=== PATIENT | male | born 1970 | race Caucasian/White ===

== ENCOUNTER → 2020-06-05 | Outpatient (CLI) | payer OTHER ==
[~2020-06-05] MED LIST: ALBUTEROL2.5 MG/3 M INH; CLARITIN10 MG PO; COMBIVENT0.074 GM/I INH; COMBIVIR TABLE1 EACH INH; DULERA 200 MCG8.8 GM INH; ECOTRIN81 MG PO; LEVOTHYROXINE88 MC1 PO; LISINOPRIL5 MG PO; LOPRESSOR 25 MG25 MG PO; METOPROLOL TART25 MG PO; NEXIUM40 MG PO; NITROGLYCERIN0.4 MG SL; NITROSTAT0.4 MG SL; OMNICEF 300 MG300 MG PO; PREDNISONE20 MG PO; PRINIVIL10 MG PO; PROTONIX40 MG PO; RANOLAZINE ER1000 MG PO; SYNTHROID88 MCG PO
[2020-06-05 14:27] LABS: HEMOGLOBIN 15.3 gm/dl (14.0-17.5); RED BLOOD COUNT 5.24 M/UL (4.20-5.50); WHITE BLOOD COUNT 6.9 K/UL (4.5-11.0)
[2020-06-05 14:47] LABS: BUN/CREATININE RATIO 10 (0-10)
== END ==
LOC: LAB 13:41
PROVIDERS: Internal Medicine Cardiovascular Disease
DX: I20.9 Angina pectoris, unspecified (principal); R53.83 Other fatigue; R94.39 Abnormal result of other cardiovascular function study; R06.02 Shortness of breath; I10 Essential (primary) hypertension; R00.0 Tachycardia, unspecified
CPT/HCPCS: 36415; 71046; 80048; 85025

== ENCOUNTER → 2020-06-09 | Outpatient (CLI) | payer OTHER | LOC: CATH 07:54 | DX: R07.89 Other chest pain (principal); I20.8 Other forms of angina pectoris; R94.39 Abnormal result of other cardiovascular function study; I49.5 Sick sinus syndrome; I10 Essential (primary) hypertension; I34.0 Nonrheumatic mitral (valve) insufficiency; E66.01 Morbid (severe) obesity due to excess calories; J43.9 Emphysema, unspecified; E03.9 Hypothyroidism, unspecified; G47.33 Obstructive sleep apnea (adult) (pediatric); Z68.37 Body mass index [BMI] 37.0-37.9, adult; Z79.82 Long term (current) use of aspirin; Z82.49 Family history of ischemic heart disease and other diseases of the circulatory system; Z79.899 Other long term (current) drug therapy; Z87.891 Personal history of nicotine dependence | CPT/HCPCS: 99152; C1769; C1894; J1644; J2250; J3010; J7030; Q9967 ==

== ENCOUNTER → 2020-08-13 | Outpatient (CLI) | payer OTHER | LOC: HEART 5 14:57 | DX: I27.20 Pulmonary hypertension, unspecified (principal); I34.0 Nonrheumatic mitral (valve) insufficiency; I07.1 Rheumatic tricuspid insufficiency | CPT/HCPCS: 93306 ==